=== PATIENT | male | born 1960 | race Caucasian/White ===

== ENCOUNTER 2017-08-10 19:12 | Emergency (ER) | payer OTHER ==
[~2017-08-10] VITALS: Ht 165.1 cm; Wt 90.0 kg
[2017-08-10 19:38] VITALS: Ht 165.1 cm; Wt 90.0 kg
[2017-08-10] MEDS ORDERED: SULF1TAB31 PO (23:43)
[2017-08-10] MEDS ORDERED: TRAM50TA2 PO (23:43)
[2017-08-10] MEDS ORDERED: IBUP-1542 PO (23:43)
[2017-08-10] MEDS ORDERED: CEPH-443 PO (23:43)
--- NOTE | 2017-08-10 23:46 | ERD ---
ER Documentation Chief Complaint Date/Time DATE: 08/10/17 TIME: 23:44 Chief Complaint c/o RLE wound x 4 days. No active bleeding. Hx DM. HPI 57-year-old male presents to emergency department for complaints of a bite wound in the right lower leg, noticed redness swelling, complaints of pain sharp pain 4/10 scale, as was upon touching the area. Patient denies any fever or chills. Patient denies any discharge coming from the area. Patient is diabetic. ROS All systems reviewed and are negative except as per history of present illness. Medications Home Meds Active Scripts Tramadol HCl (Tramadol HCl) 50 Mg Tablet, 50 MG PO Q4 Y for SEVERE PAIN LEVEL 7- 10, #20 TAB Prov:RAYNA ESTRADA NP 08/10/17 Ibuprofen* (Motrin*) 600 Mg Tab, 600 MG PO Q6H Y for PAIN AND OR ELEVATED TEMP, #30 TAB Prov:RAYNA ESTRADA NP 08/10/17 Cephalexin* (Keflex*) 500 Mg Capsule, 500 MG PO QID for 10 Days, CAP Prov:RAYNA ESTRADA NP 08/10/17 Sulfamethoxazole/Trimethoprim* (Bactrim Ds* Tablet) 1 Each Tablet, 1 TAB PO BID , #20 TAB Prov:RAYNA ESTRADA NP 08/10/17 Allergies Allergies: Coded Allergies: No Known Allergy (Unverified , 08/10/17) PMhx/Soc Medical and Surgical Hx: pt denies Surgical Hx History of Surgery: No Anesthesia Reaction: No Hx Neurological Disorder: No Hx Respiratory Disorders: No Hx Cardiac Disorders: No Hx Psychiatric Problems: No Hx Miscellaneous Medical Probl: Yes (DM) Hx Alcohol Use: No Hx Substance Use: No Hx Tobacco Use: No Smoking Status: Never smoker FmHx Family History: No coronary disease, No diabetes, No other Physical Exam Vitals Vital Signs Date Time Temp Pulse Resp B/P Pulse Ox O2 Delivery O2 Flow Rate FiO2 08/10/17 19:38 97.9 70 18 144/82 99 Physical Exam GENERAL: The patient is well developed and appropriate for usual state of health, in no apparent distress. CHEST: Clear to auscultation bilaterally. There are no rales, wheezes or rhonchi. HEART: Regular rate and rhythm. No murmurs, clicks, rubs or gallops. No S3 or S4. ABDOMEN: Soft, nontender and nondistended. Good bowel sounds. No rebound or guarding. No gross peritonitis. No gross organomegaly or masses. No Donald sign or McBurney point tenderness. BACK: No midline or flank tenderness. EXTREMITIES: Equal pulses bilaterally. There is no peripheral clubbing, cyanosis or edema. No focal swelling or erythema. Full range of motion. Grossly neurovascularly intact. NEURO: Alert and oriented. Cranial nerves 2-12 intact. Motor strength in all 4 extremities with 5/5 strength. Sensation grossly intact. Normal speech and gait. SKIN: Noted papular rash on the right lower leg, mild tenderness on palpation, no fluctuance noted. There is no apparent rash or petechia. The skin is warm and dry. HEMATOLOGIC AND LYMPHATIC: There is no evidence of excessive bruising or lymphedema. No gross cervical, axillary, or inguinal lymphadenopathy. Procedures/MDM Medical decision making: Patient symptoms was likely is consistent with infected insect bite. No symptoms of any abscess, no symptoms of any cellulitis. No symptoms of any neurovascular compromise. Prescription was given for ibuprofen, tramadol, Keflex, is advised to follow-up with primary care doctor 1-2 days for reevaluation of symptoms. Patient was advised to return to emergency department for any worsening symptoms. Disposition: Home. Stable. Departure Diagnosis: Primary Impression: Insect bite Encounter type: initial encounter Qualified Code: W57.XXXA - Insect bite, initial encounter Condition: Stable Patient Instructions: Insect Sting/Bite, Infected RAYNA ESTRADA NP Aug 10, 2017 23:46
== END 2017-08-11 00:05 | disposition home or self-care (01) ==
LOC: FTE 19:12
DX: S80.861A Insect bite (nonvenomous), right lower leg, initial encounter (principal); E11.9 Type 2 diabetes mellitus without complications; W57.XXXA Bitten or stung by nonvenomous insect and other nonvenomous arthropods, initial encounter; Y92.9 Unspecified place or not applicable
CPT/HCPCS: 99284

== ENCOUNTER 2019-01-07 14:43 | Emergency (ER) | payer OTHER ==
[~2019-01-07] VITALS: Ht 162.6 cm; Wt 88.7 kg
[~2019-01-07 14:43] MED LIST: CEPH-443 PO; IBUP-1542 PO; SULF1TAB31 PO; TRAM50TA2 PO
[2019-01-07 14:46] VITALS: Ht 162.6 cm; Wt 88.7 kg
[2019-01-07] MEDS ORDERED: KETOROLAC 30 MG INJ IM STA (16:36)
[2019-01-07] MEDS ORDERED: DEXAMETHASONE 10 MG/ML 1 ML INJ IM ONE (17:00)
[2019-01-07] MEDS ORDERED: HYDR-4011 PO (18:20)
[2019-01-07] MEDS ORDERED: IBUP-1542 PO (18:20)
[2019-01-07] MEDS ORDERED: METH750T93 PO (18:20)
--- NOTE | 2019-01-07 18:21 | ERD ---
ER Documentation Chief Complaint Chief Complaint right hip pain radiates to lower leg ROS All systems reviewed and are negative except as per history of present illness. Medications Home Meds Active Scripts Methocarbamol* (Robaxin*) 750 Mg Tablet, 750 MG PO TID PRN for MUSCLE SPASMS, #30 TAB Prov:LEANN ROWELL DO 01/07/19 Ibuprofen* (Motrin*) 600 Mg Tab, 600 MG PO Q6H PRN for PAIN AND OR ELEVATED TEMP, #30 TAB Prov:LEANN ROWELL DO 01/07/19 Hydrocodone/Acetaminophen (Casper 5-325 Tablet) 1 Each Tablet, 1 TAB PO Q6H PRN for PAIN, #10 TAB Prov:LEANN ROWELL DO 01/07/19 Tramadol HCl (Tramadol HCl) 50 Mg Tablet, 50 MG PO Q4 PRN for SEVERE PAIN LEVEL 7-10, #20 TAB Prov:RAYNA ESTRADA NP 08/10/17 Ibuprofen* (Motrin*) 600 Mg Tab, 600 MG PO Q6H PRN for PAIN AND OR ELEVATED TEMP, #30 TAB Prov:RAYNA ESTRADA NP 08/10/17 Cephalexin* (Keflex*) 500 Mg Capsule, 500 MG PO QID for 10 Days, CAP Prov:RAYNA ESTRADA NP 08/10/17 Sulfamethoxazole/Trimethoprim* (Bactrim Ds* Tablet) 1 Each Tablet, 1 TAB PO BID, #20 TAB Prov:RAYNA ESTRADA NP 08/10/17 Allergies Allergies: Coded Allergies: No Known Allergy (Unverified , 08/10/17) PMhx/Soc History of Surgery: No Anesthesia Reaction: No Hx Neurological Disorder: No Hx Respiratory Disorders: No Hx Cardiac Disorders: No Hx Psychiatric Problems: No Hx Miscellaneous Medical Probl: Yes (DM) Hx Alcohol Use: No Hx Substance Use: No Hx Tobacco Use: No Smoking Status: Never smoker Physical Exam Vitals Vital Signs Date Temp Pulse Resp B/P (MAP) Pulse Ox O2 O2 Flow FiO2 Time Delivery Rate 01/07/19 97.7 77 18 123/67 100 14:46 (85) Physical Exam Const: No acute distress Head: Atraumatic Eyes: Normal Conjunctiva ENT: Normal External Ears, Nose and Mouth. Neck: Full range of motion. No meningismus. Resp: Clear to auscultation bilaterally Cardio: Regular rate and rhythm, no murmurs Abd: Soft, non tender, non distended. Normal bowel sounds Skin: No petechiae or rashes Back: No midline or flank tenderness Ext: No cyanosis, or edema Neur: Awake and alert Psych: Normal Mood and Affect Results 24 hrs Current Medications Medications Dose Sig/Myra Start Time Status Last (Trade) Ordered Route PRN Stop Time Admin Dose Reason Admin Ketorolac 30 mg ONCE STAT 01/07/19 DC 01/07/19 Tromethamine IM 16:36 16:44 (Toradol) 01/07/19 16:39 10 mg ONCE ONCE 01/07/19 DC 01/07/19 Dexamethasone IM 17:00 16:44 (Decadron) 01/07/19 17:01 Departure Diagnosis: Primary Impression: Right hip pain Condition: Fair Patient Instructions: Hip Precautions Referrals: [facility] YOU HAVE RECEIVED A MEDICAL SCREENING EXAM AND THE RESULTS INDICATE THAT YOU DO NOT HAVE A CONDITION THAT REQUIRES URGENT TREATMENT IN THE EMERGENCY DEPARTMENT. FURTHER EVALUATION AND TREATMENT OF YOUR CONDITION CAN WAIT UNTIL YOU ARE SEEN IN YOUR DOCTORS OFFICE WITHIN THE NEXT 1-2 DAYS. IT IS YOUR RESPONSIBILITY TO MAKE AN APPOINTMENT FOR FOLOW-UP CARE. IF YOU HAVE A PRIMARY DOCTOR --you should call your primary doctor and schedule an appointment IF YOU DO NOT HAVE A PRIMARY DOCTOR YOU CAN CALL OUR PHYSICIAN REFERRAL HOTLINE AT IF YOU CAN NOT AFFORD TO SEE A PHYSICIAN YOU CAN CHOSE FROM THE FOLLOWING [facility] [address] [facility] [address] [facility] [address] [facility] [address] [facility]. [facility] [address] [facility]. [facility] [address] Additional Instructions: Llame al doctor MAANA y yarely angel AVNI PARA DENTRO DE 1-2 IRVING.Dgale a la secretaria que nosotros le instruimos hacer esta avni.Avise o llame si rasheed condicin se empeora antes de la avni. Regresa aqui si peor o no mejor. LEANN ROWELL DO Jan 07, 2019 18:21
[2019-01-07 18:40] VITALS: BP 107/60; PULSE 66; RESP 16
== END 2019-01-07 18:40 | disposition home or self-care (01) ==
LOC: FTE 14:43
DX: M25.551 Pain in right hip (principal); E11.9 Type 2 diabetes mellitus without complications
CPT/HCPCS: 73510; 96372; J1100; J1885; Z7502

== ENCOUNTER 2019-06-08 17:53 | Emergency (ER) | payer OTHER ==
[~2019-06-08] VITALS: Ht 162.6 cm; Wt 88.2 kg
[~2019-06-08 17:53] MED LIST changes: +HYDR-4011 PO; +METH750T93 PO
[2019-06-08 18:01] VITALS: Ht 162.6 cm; Wt 88.2 kg
[2019-06-08] MEDS ORDERED: KETOROLAC 30 MG INJ IV STA (20:13)
--- NOTE | 2019-06-08 20:46 | ERD ---
ER Documentation Chief Complaint Chief Complaint CP rad to arm w/ dizziness today only. no SOB/n/v HPI 59-year-old male with 1 month of left sided posterior thoracic back pain that has worsened since yesterday, radiating to the left shoulder but not down the arm. The pain was worse with deep inspiration. Denies any associated chest pain, shortness of breath, nausea, vomiting, dizziness, focal weakness or numbness. No fevers or chills. No cough. ROS All systems reviewed and are negative except as per history of present illness. Medications Home Meds Active Scripts Ibuprofen* (Motrin*) 600 Mg Tab, 600 MG PO Q6H PRN for PAIN AND OR ELEVATED TEMP, #30 TAB Prov:KIARA CORTEZ MD 06/08/19 Methocarbamol* (Robaxin*) 750 Mg Tablet, 750 MG PO TID PRN for MUSCLE SPASMS, #30 TAB Prov:LEANN ROWELL DO 01/07/19 Ibuprofen* (Motrin*) 600 Mg Tab, 600 MG PO Q6H PRN for PAIN AND OR ELEVATED TEMP, #30 TAB Prov:LEANN ROWELL DO 01/07/19 Hydrocodone/Acetaminophen ([place]ga 5-325 Tablet) 1 Each Tablet, 1 TAB PO Q6H PRN for PAIN, #10 TAB Prov:LEANN ROWELL DO 01/07/19 Tramadol HCl (Tramadol HCl) 50 Mg Tablet, 50 MG PO Q4 PRN for SEVERE PAIN LEVEL 7-10, #20 TAB Prov:RAYNA ESTRADA NP 08/10/17 Ibuprofen* (Motrin*) 600 Mg Tab, 600 MG PO Q6H PRN for PAIN AND OR ELEVATED TEMP, #30 TAB Prov:RAYNA ESTRADA NP 08/10/17 Cephalexin* (Keflex*) 500 Mg Capsule, 500 MG PO QID for 10 Days, CAP Prov:RAYNA ESTRADA NP 08/10/17 Sulfamethoxazole/Trimethoprim* (Bactrim Ds* Tablet) 1 Each Tablet, 1 TAB PO BID, #20 TAB Prov:RAYNA ESTRADA NP 08/10/17 Allergies Allergies: Coded Allergies: No Known Allergy (Unverified , 08/10/17) PMhx/Soc Medical and Surgical Hx: pt denies Surgical Hx History of Surgery: No Anesthesia Reaction: No Hx Neurological Disorder: No Hx Respiratory Disorders: No Hx Cardiac Disorders: No Hx Psychiatric Problems: No Hx Miscellaneous Medical Probl: Yes (DM) Hx Alcohol Use: No Hx Substance Use: No Hx Tobacco Use: No Smoking Status: Never smoker FmHx Family History: No diabetes Physical Exam Vitals Vital Signs Date Temp Pulse Resp B/P (MAP) Pulse Ox O2 O2 Flow FiO2 Time Delivery Rate 06/08/19 97.6 60 20 121/73 100 Room Air 20:51 (89) 06/08/19 63 14 122/73 98 Room Air 19:30 (89) 06/08/19 98.1 78 16 133/78 100 18:01 (96) Physical Exam Const: No acute distress Head: Atraumatic Eyes: Normal Conjunctiva ENT: Normal External Ears, Nose and Mouth. Neck: Full range of motion. No meningismus. Resp: Clear to auscultation bilaterally Cardio: Regular rate and rhythm, no murmurs. 2+ radial pulses bilaterally. 2+ DP and PT pulses bilaterally. Abd: Soft, non tender, non distended. Normal bowel sounds Skin: No petechiae or rashes Back: Left paraspinal thoracic muscle tenderness to palpation just medial to the scapula, reproduces pain. No midline or flank tenderness Ext: No cyanosis, or edema Neur: Awake and alert Psych: Normal Mood and Affect Result Diagram: 06/08/19184906/08/191849 Results 24 hrs Laboratory Tests Test 06/08/19 18:50 White Blood Count 5.6 10^3/ul Red Blood Count 4.85 10^6/ul Hemoglobin 15.3 g/dl Hematocrit 44.9 % Mean Corpuscular Volume 92.6 fl Mean Corpuscular Hemoglobin 31.5 pg Mean Corpuscular Hemoglobin Concent 34.1 g/dl Red Cell Distribution Width 12.2 % Platelet Count 190 10^3/UL Mean Platelet Volume 10.3 fl Immature Granulocytes % 0.200 % Neutrophils % 48.6 % Lymphocytes % 36.5 % Monocytes % 10.3 % Eosinophils % 4.0 % Basophils % 0.4 % Nucleated Red Blood Cells % 0.0 /100WBC Immature Granulocytes # 0.010 10^3/ul Neutrophils # 2.7 10^3/ul Lymphocytes # 2.0 10^3/ul Monocytes # 0.6 10^3/ul Eosinophils # 0.2 10^3/ul Basophils # 0.0 10^3/ul Nucleated Red Blood Cells # 0.0 10^3/ul Sodium Level 140 mmol/L Potassium Level 3.8 mmol/L Chloride Level 102 mmol/L Carbon Dioxide Level 29 mmol/L Anion Gap 9 Blood Urea Nitrogen 16 mg/dl Creatinine 0.81 mg/dl Est Glomerular Filtrat Rate mL/min > 60 mL/min Glucose Level 163 mg/dl Calcium Level 9.6 mg/dl Troponin I < 0.012 ng/ml Current Medications Medications Dose Sig/Myra Start Time Status Last (Trade) Ordered Route PRN Stop Time Admin Dose Reason Admin Ketorolac 30 mg ONCE STAT 06/08/19 DC 06/08/19 Tromethamine IV 20:13 20:24 (Toradol) 06/08/19 20:14 Procedures/MDM EMERGENT LABS AND DIAGNOSTIC STUDIES: Lab Results above were reviewed and interpreted by me. CBC: no anemia or evidence of infection BMP: [no e/o clinically significant electrolyte abnormality severe acidosis, alkalosis, renal failure, diabetic ketoacidosis] Troponin within normal limits, not indicative of cardiac ischemia 12-lead EKG was interpreted by Nguyễn Cortez MD: Sinus rhythm with first-degree AV block Rightward axis Normal intervals No acute ST or T wave changes suggestive of acute ischemia or STEMI. Radiology Results as interpreted by Radiology below were reviewed by SLi Cortez MD: Chest x-ray shows no acute abnormalities Initial Nursing notes reviewed. Previous Medical Records requested via the Electronic Health Record. EMERGENCY DEPARTMENT COURSE / MEDICAL DECISION MAKING: patient is presenting with left-sided thoracic chronic back pain that has acutely worsened since last night. He is hemodynamically stable. I have a low suspicion for aortic dissection, pulmonary embolism, pneumothorax, ACS. Work-up did not show any significant abnormalities. Patient was treated with Toradol with improvement of his symptoms. Upon reevaluation, he states he has no more pain. Patient will be discharged with a prescription for ibuprofen. Return precautions given. Follow-up with PCP recommended if his pain continues. Patient's blood pressure was elevated (>120/80) but appears stable without evidence of hypertensive emergency or urgency. The patient was counseled about the risks of hypertension and urged to pursue outpatient monitoring and therapy within a week with their primary care physician. Departure Diagnosis: Primary Impression: Left-sided thoracic back pain Chronicity: chronic Qualified Codes: M54.6 - Pain in thoracic spine; G89.29 - Other chronic pain Condition: Stable Patient Instructions: Thoracic Strain Additional Instructions: Llame al doctor MAANA y yarely angel AVNI PARA DENTRO DE 1-2 IRVING.Dgale a la secretaria que nosotros le instruimos hacer esta avni.Avise o llame si rasheed condicin se empeora antes de la avni. Regresa aqui si peor o no mejor. KIARA CORTEZ MD Jun 08, 2019 20:46
[2019-06-08 20:51] VITALS: BP 121/73; PULSE 60; RESP 20
== END 2019-06-08 20:51 | disposition home or self-care (01) ==
LOC: E/R 17:53
DX: M54.6 Pain in thoracic spine (principal); E11.9 Type 2 diabetes mellitus without complications
CPT/HCPCS: 36415; 71045; 80048; 84484; 85025; 93005; 96374; J1885; Z7502